=== PATIENT | male | born 1945 | race Caucasian/White ===

== ENCOUNTER → 2022-02-07 11:04 | Outpatient (BNVA) | payer MEDICARE, SELFPAY | PROVIDERS: PCP Internal Medicine; Visit Provider Urology | DX: Z13.89 Encounter for screening for other disorder (principal) | CPT/HCPCS: Q3014 ==

== ENCOUNTER → 2023-02-06 10:45 | Outpatient (BNVA) | payer MEDICARE, BC, SELFPAY | PROVIDERS: PCP Internal Medicine; Visit Provider Urology | DX: N40.1 Benign prostatic hyperplasia with lower urinary tract symptoms (principal); N13.8 Other obstructive and reflux uropathy | CPT/HCPCS: 51798; 99212 ==

== ENCOUNTER 2024-02-03 09:59 | Outpatient (AMB) | payer MEDICARE, BC, SELFPAY ==
--- NOTE | 2024-02-03 10:03 | MHC.OFFVIS ---
Intake Intake Visit Reasons: 1Y PVR Intake Note: Patient is Present for Follow Up Urology Medication: Doxazosin, Finasteride Antibiotic Allergies: None Blood Thinners: None [facility]am[facility]: [facility] PVR: 318 Allergies sildenafil [Viagra] Allergy (Unknown, Verified 02/03/24 10:03) Unknown Medication List - Last Reconciled 02/03/24 by Shawn Hernandez MD doxazosin 2 mg PO BEDTIME 30 days finasteride 5 mg PO DAILY 90 days gabapentin 100 mg PO DAILY glimepiride 2 mg PO BID levothyroxine 125 mcg PO DAILY lisinopril-hydrochlorothiazide 20-12.5 mg 1 tab PO DAILY metformin 1,000 mg PO BID simvastatin 10 mg PO BEDTIME terazosin 5 mg PO BEDTIME 30 days HPI HPI Comments History of Present Illness Details Lorenzo WALSH is a very pleasant male. He is a patient of Dr Willoughby. He is seen in the office today for the following urologic conditions. - lower UTI symptoms - background diabetes - bladder diverticula Yearly review PVR up to 300 from 150 Known bladder diverticula Hernia repair last year Trial terazosin with repeat PVR Discussed recent [employer] Lower Urinary Tract Symptoms:? Bladder diverticulum ?Prior PVR 125 ? Current visit is for?further evaluation of, lower urinary tract symptoms, predominate obstructive symptoms.? Current treatment includes?finasteride.? Prior treatments include?TURP 2013 ? Prostate Symptom Score?Moderate (9-19), Bother 3.? Symptoms include?incomplete emptying, weak stream, nocturia (>2), and are progressing.? Results from testing include? cystoscopy ?no abnormality seen 05/19 - TURP defect, diverticulum ? uroflow was performed ?No ? transrectal ultrasound ?No ? renal/bladder us ?No ? Prostate volume?50+gm.? Testing at next visit will include?bladder scan, uroflow [facility] Medical History Atherosclerotic heart disease of [place] coronary artery without angina pectoris Diabetes mellitus, type II Review of Systems Const Denies chills and Denies fever(s) Card Reports no additional complaints and Denies syncope Resp Denies cough GI Denies abdominal pain and Denies heartburn Reports as per HPI and Denies change in libido Neuro Denies syncope Psych Denies change in libido Endo Denies change in libido Physical Exam Const General: cooperative, healthy appearing, comfortable and no acute distress Orientation/consciousness: patient oriented x3 HEENT Face and sinus: Yes normal facial exam Mouth: moist mucous membranes Neck Neck: Yes normal visual inspection, Yes full ROM and Yes trachea midline Chest Chest palpation & inspection: normal inspection of the chest Resp Effort & Inspection: normal respiratory effort, able to speak in complete sentences and no respiratory distress GI Inspection: Yes normal to inspection Back/Spine/Pelvis Cervical Spine: normal cervical lordosis Thoracic/Lumbar Spine: thoracic and lumbar spine normal to inspection Skin General skin exam: no rashes or lesions noted Neuro General: patient oriented x3, gait normal, tone normal and moves all extremities Extrem General: Yes normal to inspection and Yes capillary refill normal Office Procedures Post Void Residual Post Residual Void Post Void Residual (PVR): [id number] Void Residual by ultrasound Assessment & Plan Assessment & Plan (1) BPH w urinary obs/LUTS: Code(s): N40.1 - Benign prostatic hyperplasia with lower urinary tract symptoms; N13.8 - Other obstructive and reflux uropathy (2) Incomplete emptying of bladder due to benign prostatic hyperplasia: Code(s): N40.1 - Benign prostatic hyperplasia with lower urinary tract symptoms; R33.9 - Retention of urine, unspecified Plan Two month follow-up Trial alpha queenie Orders: Orders AMB Post Void Residual by ultrasound Today N13.8 - Other obstructive and reflux uropathy, N40.1 - Benign prostatic hyperplasia with lower urinary tract symptoms Medications: New terazosin 5 mg PO BEDTIME 30 caps 1RF 30 days N13.8 - Other obstructive and reflux uropathy, N40.1 - Benign prostatic hyperplasia with lower urinary tract symptoms, R35.0 - Frequency of micturition Patient Instructions: Imaging studies, laboratory and physical exam results were discussed and reviewed in detail. No major barriers to patient understanding were identified. An opportunity to ask questions regarding the treatment plan was provided. All questions were answered. The patient expressed understanding and agreement with the above treatment plan. The patient is aware they should contact our office by phone for worsening of their current condition or the appearance of new urologic symptoms. Compliance is encouraged with any medications and followup testing that is ordered. It is a privilege to participate in the urologic care of your patient. If you have any questions or concerns regarding treatment for the above conditions, or other urologic issues, please do not hesitate to contact me. The office telephone contact is [phone]. This note is constructed using voice recognition software. While every effort has been made to ensure accuracy roll grinder errors may have been included. Yours sincerely, Dr Shawn Hernandez MD, SARAH [facility] - Urology Providers of Expert, Compassionate Care for the Genitourinary System Coding Level of Care Code Est Pt Level 4 (48439) Diagnoses BPH w urinary obs/LUTS N40.1; N13.8 Incomplete emptying of bladder due to benign prostatic hyperplasia N40.1; R33.9 CPT Codes Post Residual Void - PVR CPT Code: [id number] Void Residual by ultrasound ([id number])
== END 2024-02-03 10:31 | disposition home or self-care (01) ==
LOC: HO.HUSH 09:59
PROVIDERS: PCP Internal Medicine; Visit Provider Urology
DX: N40.1 Benign prostatic hyperplasia with lower urinary tract symptoms (principal); N13.8 Other obstructive and reflux uropathy; R33.9 Retention of urine, unspecified
CPT/HCPCS: 99214

== ENCOUNTER → 2024-02-03 09:59 | Outpatient (BNVA) | payer MEDICARE, BC, SELFPAY | PROVIDERS: PCP Internal Medicine; Visit Provider Urology | DX: N40.1 Benign prostatic hyperplasia with lower urinary tract symptoms (principal); N13.8 Other obstructive and reflux uropathy; R33.9 Retention of urine, unspecified | CPT/HCPCS: 51798; 99212 ==

== ENCOUNTER 2024-04-08 12:02 | Outpatient (AMB) | payer MEDICARE, BC, SELFPAY ==
--- NOTE | 2024-04-08 11:38 | A.OFFVIS_ITS ---
Intake Visit Reasons: 2m/PVR Intake Note: Patient is Present for Telephone Follow Up For Urology Med: Finasteride Antibiotic Allergy: None Blood Thinner:None Allergies sildenafil [Viagra] Allergy (Unknown, Verified 02/03/24 10:03) Unknown Medication List - Last Reconciled 04/08/24 by Shawn Hernandez MD finasteride 5 mg PO DAILY 90 days gabapentin 100 mg PO DAILY glimepiride 2 mg PO BID levothyroxine 125 mcg PO DAILY lisinopril-hydrochlorothiazide 20-12.5 mg 1 tab PO DAILY metformin 1,000 mg PO BID simvastatin 10 mg PO BEDTIME HPI Comments Details: Lorenzo WALSH is a very pleasant male. He is a patient of Dr Willoughby. He is seen in the office today for the following urologic conditions. - lower UTI symptoms - background diabetes - bladder diverticula Telemedicine Evaluation 15 min Consultation [employer] Unable to tolerate terazosin Had dizziness Background on finasteride Plan trial alfuzosin with follow-up cystoscopy in office to see if needs revision prostate procedure Discussed recent [facility] [employer] Lower Urinary Tract Symptoms:? Bladder diverticulum ?Prior PVR 125 ? Current visit is for?further evaluation of, lower urinary tract symptoms, predominate obstructive symptoms.? Current treatment includes?finasteride.? Prior treatments include?TURP 2013, unable to tolerate terazosin secondary to blood pressure issues ? Prostate Symptom Score?Moderate (9-19), Bother 3.? Symptoms include?incomplete emptying, weak stream, nocturia (>2), and are progressing.? Results from testing include? cystoscopy ?no abnormality seen 05/19 - TURP defect, diverticulum ? uroflow was performed ?No ? transrectal ultrasound ?No ? renal/bladder us ?No ? Prostate volume?50+gm.? PFSH Medical History Atherosclerotic heart disease of [place] coronary artery without angina pectoris Diabetes mellitus, type II Review of Systems Const All systems reviewed & are unremarkable except as noted in HPI and below Reports no additional complaints Resp Reports no additional complaints GI Reports no additional complaints Reports as per HPI Musc Reports no additional complaints Physical Exam Telemedicine evaluation Appropriate responses Regular breathing rate and rhythm HEENT Head: Yes normal to inspection Ears: hearing grossly normal bilaterally Eyes General: appearance normal, both eyes and all related structures Neck Neck: Yes normal visual inspection Chest Chest palpation & inspection: normal inspection of the chest Resp Effort & Inspection: normal respiratory effort and able to speak in complete sentences Telehealth Telehealth Telehealth Platform: [employer] Location of provider rendering services: practice address Location of patient: address on file Patient Identification confirmed using: Name, : Yes Telehealth method: video Patient verbally consented to treatment: Yes Patient verbally consented to billing insurance company: Yes Patient informed of any privacy concerns related to visit: Yes Minutes spent on Phone/Video with Pt.: 15 Assessment & Plan Assessment & Plan (1) Incomplete emptying of bladder due to benign prostatic hyperplasia: Code(s): N40.1 - Benign prostatic hyperplasia with lower urinary tract symptoms; R33.9 - Retention of urine, unspecified Category: Medical (2) BPH w urinary obs/LUTS: Code(s): N40.1 - Benign prostatic hyperplasia with lower urinary tract symptoms; N13.8 - Other obstructive and reflux uropathy Category: Medical Plan Two month follow-up cysto office Trial alfuzosin Medications: New alfuzosin ER Take before bedtime 10 mg PO BEDTIME 30 days 30 tabs 1RF N13.8 - Other obstructive and reflux uropathy, N32.0 - Bladder-neck obstruction, N40.1 - Benign prostatic hyperplasia with lower urinary tract symptoms, R33.9 - Retention of urine, unspecified, R35.1 - Nocturia, R39.12 - Poor urinary stream Patient Instructions: Imaging studies, laboratory and physical exam results were discussed and reviewed in detail. No major barriers to patient understanding were identified. An opportunity to ask questions regarding the treatment plan was provided. All questions were answered. The patient expressed understanding and agreement with the above treatment plan. The patient is aware they should contact our office by phone for worsening of their current condition or the appearance of new urologic symptoms. Compliance is encouraged with any medications and followup testing that is ordered. It is a privilege to participate in the urologic care of your patient. If you have any questions or concerns regarding treatment for the above conditions, or other urologic issues, please do not hesitate to contact me. The office telephone contact is [phone]. This note is constructed using voice recognition software. While every effort has been made to ensure accuracy intake clinician errors may have been included. Yours sincerely, Dr Shawn Hernandez MD, SARAH [facility] - Urology Providers of Expert, Compassionate Care for the Genitourinary System Coding Level of Care Code Tele Est Pt Level 4 (31959) Diagnoses Incomplete emptying of bladder due to benign prostatic hyperplasia N40.1; R33.9 BPH w urinary obs/LUTS N40.1; N13.8
== END 2024-04-08 12:34 | disposition home or self-care (01) ==
LOC: HO.HUSH 12:02
PROVIDERS: PCP Internal Medicine; Visit Provider Urology
DX: N40.1 Benign prostatic hyperplasia with lower urinary tract symptoms (principal); R33.9 Retention of urine, unspecified; N13.8 Other obstructive and reflux uropathy
CPT/HCPCS: 99442

== ENCOUNTER → 2024-04-08 12:02 | Outpatient (BNVA) | payer MEDICARE, BC, SELFPAY | PROVIDERS: PCP Internal Medicine; Visit Provider Urology ==